=== PATIENT | female | born 1990 | race Caucasian/White ===

== ENCOUNTER 2019-08-07 10:26 | Inpatient (IN) | payer OTHER ==
[2019-08-07 10:53] VITALS: BMI 23.3
--- NOTE | 2019-08-07 11:37 | HP ---
COWS - Scale Resting Pulse: 0= HI 80 or Below Sweatin= Streaming Sweat Restless Observation: 1= Difficult to Sit Still Pupil Size: 1= Pupils >than Normal Bone or Joint Aches: 2= Severe Diffuse Aches Runny Nose/ Eye Tearin= Runny Nose/Eyes GI Upset > 30mins: 2= Nausea/Diarrhea Tremor Observation: 1= Tremor [place], Not Seen Yawning Observation: 1= 1-2x During Session Anxiety or Irritability: 1=Feels Anxious/Irritable Goose Flesh Skin: 0=Smooth Skin COWS Score: 15 CIWA Score - Admission Criteria OASAS Guidelines: Admission for Medically Managed Detox: Requires at least one of the followin. CIWA greater than 12 2. Seizures within the past 24 hours 3. Delirium tremens within the past 24 hours 4. Hallucinations within the past 24 hours 5. Acute intervention needed for co occurring medical disorder 6. Acute intervention needed for co occurring psychiatric disorder 7. Severe withdrawal that cannot be handled at a lower level of care (continued vomiting, continued diarrhea, abnormal vital signs) requiring intravenous medication and/or fluids 8. 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 Pt was last here 3 years- stopped using heroin, relapsed with pain pills. Last use was 3 days ago- here b/c she is in withdrawal. Wants to stop. 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 PCP-pt does not have one, uses hormones occ heroin- uses 2 oz/day- pure, h/o OD once, has narcan. Illicit methadone THC- rarely occ alcohol use Urine tox: THC, MTD- last use methadone one week ago, last use heroin 3 days - Ebola screening Have you traveled outside of the country in the last 21 days: No Have you had contact with anyone from an Ebola affected area: No Patient History - Patient Medical History Hx Anemia: No Hx Asthma: No Hx Chronic Obstructive Pulmonary Disease (COPD): No Hx Cancer: No Hx Cardiac Disorders: No Hx Congestive Heart Failure: No Hx Hypertension: No Hx Hypercholesterolemia: No Hx Pacemaker: No HX Cerebrovascular Accident: No Hx Seizures: No Hx Dementia: No Hx Diabetes: No Hx Gastrointestinal Disorders: No Hx Liver Disease: No Hx Genitourinary Disorders: No Hx Sexually Transmitted Disorders: No Hx Renal Disease (ESRD): No Hx Thyroid Disease: No Hx Human Immunodeficiency Virus (HIV): No (NEG) Hx Hepatitis C: No (NEG) Hx Depression: Yes Hx Suicide Attempt: Yes (10/31/2012) Hx Bipolar Disorder: No Hx Schizophrenia: No - Patient Surgical History Past Surgical History: No - PPD History Date: 09/11/16 - Smoking Cessation Smoking history: Never smoked Hx Chewing Tobacco Use: No Initiated information on smoking cessation: No - Substances abused Heroin Substance route: Inhalation Frequency: Daily Amount used: varies Age of first use: 18 Date of last use: 08/05/19 Other Other (specify): oxycodone Substance route: Oral Frequency: 3-6 times per week Amount used: 200mg Age of first use: 19 Date of last use: 08/04/19 Admission Physical Exam BHS - Vital Signs Vital Signs: Vital Signs - 24 hr 08/07/19 10:43 Temperature 97.9 F Pulse Rate 88 Respiratory 20 Rate Blood Pressure 124/84 Breathalyzer - Breathalyzer Breathalyzer: 0 Urine Drug Screen - Test Device Lot number: [id number] Expiration date: 03/25/21 - Control Is test valid?: Yes - Results Drug screen NEGATIVE: Yes Urine drug screen results: THC-Marijuana, MTD-Methadone Inpatient Rehab Admission - Rehab Decision to Admit Inpatient rehab admission?: No
[2019-08-07] MEDS ORDERED: clonazePAM 0.5 MG TABLET PO PRN (11:40)
[2019-08-07] MEDS ORDERED: IBUPROFEN 400 MG TABLET (FP) PO PRN (11:40)
[2019-08-07] MEDS ORDERED: METHADONE HCL 10 MG TABLET (FOR DETOX USE ONLY) PO ONE (11:40)
[2019-08-07] MEDS ORDERED: cloNIDine HCL 0.1 MG TABLET PO PRN (11:40)
[2019-08-07] MEDS ORDERED: BISMUTH SUBSALICYLATE 524 MG/30 ML UD PO PRN (11:40)
[2019-08-07] MEDS ORDERED: MELATONIN 5 MG TABLETS PO PRN (11:40)
[2019-08-07] MEDS ORDERED: hydrOXYzine PAMOATE 25 MG CAPSULE (FP) PO PRN (11:40)
[2019-08-07] MEDS ORDERED: ACETAMINOPHEN 325 MG TABLET (FP) PO PRN ×2 (11:40)
[2019-08-07] MEDS ORDERED: MAGNESIUM CITRATE 300 ML BOTTLE PO PRN (11:40)
[2019-08-07] MEDS ORDERED: METHOCARBAMOL 500 MG TABLET PO PRN (11:40)
[2019-08-07] MEDS ORDERED: MAGNESIUM HYDROX 2400MG/30ML ORAL SUSPENSION 30 ML CUP PO PRN (11:40)
[2019-08-07] MEDS ORDERED: MENTHOL/PHENOL 1 EACH UD MM PRN (11:40)
[2019-08-07] MEDS ORDERED: MAG HYDROX/AL HYDROX/SIMETH 30 ML UNIT-DOSE CUP PO PRN (11:40)
[2019-08-07 13:46] VITALS: BP 136/82; PULSE 75; TEMP 98.5
--- NOTE | 2019-08-07 14:56 | DS ---
[facility] Detox Discharge Summary Admission Date: 08/07/19 Discharge Date: 08/07/19 - History Pertinent Past History: Pt decided to leave as soon as she got to the floor. Would not give a reason. d/w pt suboxone MAT for treatment as an outpt - Physical Exam Results Vital Signs: Vital Signs Temperature 98.5 F 08/07/19 13:46 Pulse Rate 75 08/07/19 13:46 Respiratory Rate 16 08/07/19 13:46 Blood Pressure 136/82 08/07/19 13:46 O2 Sat by Pulse Oximetry (%) - Medication Discharge Medications: Ambulatory Orders Dutasteride [Avodart] 0.5 mg PO DAILY 09/08/16 Spironolactone [Aldactone] 200 mg PO BID 09/08/16 Estradiol Valerate 40 mg IM WEEKLY 08/07/19 - AMA Did Patient Leave Against Medical Advice: Yes
[2019-08-07] MEDS ORDERED: THIAMINE HCL 100 MG TABLET (FP) PO SCH (22:00)
[2019-08-08] MEDS ORDERED: METHADONE (DETOX) 20 MG, METHADONE (DETOX) 5 MG PO ONE (10:00)
[2019-08-08] MEDS ORDERED: PRENATAL VITAMINS W/ FOLIC ACID TABLET (FP) PO SCH (10:00)
--- NOTE | 2019-08-08 13:05 | EKG ---
Test Reason : Blood Pressure : / mmHG Vent. Rate : 058 BPM Atrial Rate : 058 BPM P-R Int : 096 ms QRS Dur : 088 ms QT Int : 468 ms P-R-T Axes : -51 062 054 degrees QTc Int : 459 ms UNUSUAL P AXIS, POSSIBLE ECTOPIC ATRIAL BRADYCARDIA ABNORMAL ECG NO PREVIOUS ECGS AVAILABLE Confirmed by JOSE JUAN AZUL MD ([id number]) on 08/08/2019 1:05:45 PM Referred By: Confirmed By:JOSE JUAN AZUL MD
[2019-08-09] MEDS ORDERED: METHADONE HCL 10 MG TABLET (FOR DETOX USE ONLY) PO ONE (10:00)
[2019-08-10] MEDS ORDERED: METHADONE (DETOX) 10 MG, METHADONE (DETOX) 5 MG PO ONE (10:00)
[2019-08-11] MEDS ORDERED: METHADONE HCL 10 MG TABLET (FOR DETOX USE ONLY) PO ONE (10:00)
[2019-08-12] MEDS ORDERED: METHADONE HCL 5 MG TABLET (FOR DETOX USE ONLY) PO ONE (06:00)
== END 2019-08-07 14:24 | disposition left against medical advice (07) | DRG 770 ==
LOC: YASAS 10:26 → Y3N 12:11
PROVIDERS: ADMIT Allergy & Immunology; ATTEND Allergy & Immunology
PROC: HZ2ZZZZ Detoxification Services for Substance Abuse Treatment (ICD-10-PCS; principal; 2019-08-05)
DX: F11.23 Opioid dependence with withdrawal (principal); F64.1 Dual role transvestism; F32.9 Major depressive disorder, single episode, unspecified
CPT/HCPCS: 93005; 93010

== ENCOUNTER 2024-08-23 12:16 | Emergency (ER) | payer OTHER ==
[2024-08-23 13:21] VITALS: BP 116/84; PULSE 95; RESP 18; TEMP 98.2; BMI 23.0
[2024-08-23] MEDS ORDERED: methaDONE HCL 10 MG TABLET ONE (13:43)
[2024-08-23] MEDS: methaDONE HCL 10 MG TABLET PO ONE ×2 (13:50→13:51)
== END 2024-08-23 13:53 | disposition home or self-care (01) ==
LOC: JERFT 12:16
DX: F41.9 Anxiety disorder, unspecified (principal); Z79.891 Long term (current) use of opiate analgesic
CPT/HCPCS: 99283-25